=== PATIENT | male | born 1930 | race Caucasian/White ===

== ENCOUNTER 2017-08-17 12:42 | Emergency (ER) | payer OTHER ==
[2017-08-17 13:08] VITALS: BP 144/107
== END 2017-08-17 14:03 | disposition home or self-care (01) ==
LOC: ED 12:42
DX: S30.861A Insect bite (nonvenomous) of abdominal wall, initial encounter (principal); M19.90 Unspecified osteoarthritis, unspecified site; F41.9 Anxiety disorder, unspecified; W57.XXXA Bitten or stung by nonvenomous insect and other nonvenomous arthropods, initial encounter; Y93.89 Activity, other specified; Y99.8 Other external cause status; Y92.89 Other specified places as the place of occurrence of the external cause

== ENCOUNTER 2017-09-28 11:30 | Emergency (ER) | payer OTHER ==
[~2017-09-28] VITALS: Ht 175.3 cm; Wt 72.6 kg
[2017-09-28 14:23] LABS: BASOPHIL % 0.3 % (0-2); PLATELET COUNT 203 x10^3mcL (130-400)
[2017-09-28 14:25] LABS: RED CELL DISTRIBUTION WIDTH 14.7 % (11.5-14.5)
[2017-09-28 14:31] LABS: CALCIUM 7.8 mg/dL (8.5-10.1); CARBON DIOXIDE 26.6 mmol/L (21-32); CHLORIDE SERUM 107 mmol/L (98-107); CREATININE SERUM 0.9 mg/dL (0.7-1.3); GLUCOSE SERUM 97 mg/dL (74-106); POTASSIUM SERUM 4.6 mmol/L (3.5-5.1); SODIUM SERUM 138 mmol/L (136-145)
[2017-09-28 14:36] LABS: ALKALINE PHOSPHATASE 81 U/L (46-116); ALT/SGPT 18 U/L (16-63); AST/SGOT 11 U/L (15-37); BILIRUBIN TOTAL 0.4 mg/dL (0.20-1.00)
[2017-09-28 14:38] LABS: ALBUMIN 2.9 g/dL (3.4-5.0); TOTAL PROTEIN, SERUM 5.6 g/dL (6.4-8.2)
[2017-09-28 14:40] VITALS: BP 147/86
== END 2017-09-28 15:58 | disposition home or self-care (01) ==
LOC: ED 11:30
PROVIDERS: Emergency Medicine
DX: S82.832A Other fracture of upper and lower end of left fibula, initial encounter for closed fracture (principal); S20.212A Contusion of left front wall of thorax, initial encounter; S50.11XA Contusion of right forearm, initial encounter; S30.810A Abrasion of lower back and pelvis, initial encounter; S30.811A Abrasion of abdominal wall, initial encounter; X58.XXXA Exposure to other specified factors, initial encounter; Y93.89 Activity, other specified; Y99.8 Other external cause status; Y92.89 Other specified places as the place of occurrence of the external cause
CPT/HCPCS: J1885; Q9967